=== PATIENT | female | born 1990 | race African-American/Black ===

== ENCOUNTER 2017-07-04 09:19 | Emergency (ER) | payer OTHER ==
[~2017-07-04] VITALS: Ht 152.4 cm; Wt 74.8 kg
[2017-07-04 09:19] VITALS: BP 123/78
[~2017-07-04 09:19] MED LIST: ACETAMINOPHEN325 M1 PO; APAP500; BACTRIM DS TAB1 EACH PO; IBUPROFEN 600600 M1 PO; PYRIDIUM200 MG PO
== END 2017-07-04 10:17 | disposition home or self-care (01) ==
LOC: ER 09:19
DX: H10.9 Unspecified conjunctivitis (principal); F10.99 Alcohol use, unspecified with unspecified alcohol-induced disorder